=== PATIENT | female | born 1980 | race Caucasian/White ===

== ENCOUNTER 2024-06-08 06:30 | Day surgery (SDC) | payer BC, SELFPAY ==
[2024-06-08 14:25] LABS: Glucose - Point of Care 83 mg/dl (70-99)
== END 2024-06-08 16:00 | disposition home or self-care (01) ==
LOC: GI 06:30
PROVIDERS: ATTENDING PHYSICIAN Internal Medicine Gastroenterology
DX: Z12.11 Encounter for screening for malignant neoplasm of colon (principal); D12.3 Benign neoplasm of transverse colon; Z83.719 Family history of colon polyps, unspecified
CPT/HCPCS: 45385; 88305; 82962